=== PATIENT | female | born 1950 | race African-American/Black ===

== ENCOUNTER 2023-10-26 11:11 | Day surgery (SDC) | payer OTHER ==
[2023-10-22 15:55] VITALS: BMI 38.0
[2023-10-26 12:51] VITALS: TEMP 97
[2023-10-26 13:16] VITALS: RESP 16
[2023-10-26 13:18] VITALS: BP 120/56; PULSE 61
== END 2023-10-26 13:40 | disposition home or self-care (01) ==
LOC: FASU-ENDO 11:11
PROVIDERS: ATTEND Internal Medicine Gastroenterology
PROC: 0DBN8ZX Excision of Sigmoid Colon, Via Natural or Artificial Opening Endoscopic, Diagnostic (ICD-10-PCS; 2023-10-26)
PROC: 0DBH8ZX Excision of Cecum, Via Natural or Artificial Opening Endoscopic, Diagnostic (ICD-10-PCS; 2023-10-26)
PROC: 0DBK8ZX Excision of Ascending Colon, Via Natural or Artificial Opening Endoscopic, Diagnostic (ICD-10-PCS; principal; 2023-10-26 12:14)
DX: Z12.11 Encounter for screening for malignant neoplasm of colon (principal); D12.0 Benign neoplasm of cecum; D12.2 Benign neoplasm of ascending colon; K63.5 Polyp of colon; K57.30 Diverticulosis of large intestine without perforation or abscess without bleeding
CPT/HCPCS: 88305-TC